=== PATIENT | female | born 1945 | race Two or more races ===

== ENCOUNTER 2020-02-21 11:53 | Outpatient (CLI) | payer OTHER | END 2020-02-21 12:56 | disposition home or self-care (01) | LOC: SONOGRAMA 11:53 | PROVIDERS: ATTEND Pathology Anatomic Pathology & Clinical Pathology | DX: D34 Benign neoplasm of thyroid gland (principal); E07.89 Other specified disorders of thyroid; E04.1 Nontoxic single thyroid nodule ==